=== PATIENT | female | born 2005 | race Caucasian/White ===

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

== ENCOUNTER 2024-02-24 19:35 | Outpatient (CLI) | payer MEDICAID, SELFPAY ==
[2024-02-24 19:49] VITALS: RESP 16; TEMP 36.8
[2024-02-24 19:50] VITALS: BP 104/64; PULSE 87
[2024-02-24 20:30] VITALS: BMI 24.5
[2024-02-24 20:59] LABS: Mucous, Urine 0 SEEN /hpf (<or=2+); Red Blood Cells-Urine 0 SEEN /hpf (0-5)
[2024-02-24 21:02] LABS: Absolute Lymphocyte Count 1.69 X10^3/uL (0.83-4.51); Absolute Neutrophil Count 8.7 X10^3/uL (2.0-7.7); Basophil# 0.02 X10^3/uL; Basophil% 0.2 % (0-1); Eosinophil# 0.05 X10^3/uL; Eosinophils% 0.4 % (0-5); Hematocrit 29.3 % (37-47); Hemoglobin 9.3 g/dL (12.0-15.0); Lymphocyte # 1.69 X10^3/ul (0.83-4.51); Mean Corp Hgb Conc 31.7 g/dL (32-36); Mean Corpuscular Hgb 24.6 pg (27.0-32.0); Mean Corpuscular Volume 77.5 fL (81-99); Mean Platelet Vol. 11.3 fl (6.2-12.0); Monocyte% 6.2 % (0-10); NRBC Flagged by Analyzer 0 % (0-5); Neutrophil # 8.74 X10^3/uL (2.7-7.7); Neutrophil % 77.3 % (47-70); Platelet Count 226 K/mm3 (150-450); RBC Distribution Width CV 13.5 % (11.6-14.6); RBC Distribution Width SD 38.1 fl (35.1-43.9); Red Blood Count 3.78 M/mm3 (4.2-5.4); White Blood Count 11.3 K/mm3 (4.4-11.0)
[2024-02-24 21:06] LABS: Color, Urine Yellow (Yellow); Glucose, Dipstick Normal (Normal); Ketone-Dipstick Negative (Negative); Leukocyte Esterase-Dipstick 25 /ul (Negative); Nitrite-Dipstick Negative (Negative); Occult Blood-Urine Negative /ul (Negative); Protein-Dipstick 15 mg/dl (Negative); Specific Gravity, Urine 1.015 (1.002-1.030); Urine Bilirubin Dipstick Negative (Negative); Urine Clarity Sl. Cloudy (Clear); Urine Urobilinogen Normal (Normal); Urine pH 6.5 (5.0 - 8.0)
[2024-02-24 21:12] LABS: Fibrinogen 468 mg/dl (203-444)
[2024-02-24 21:18] LABS: Bacteria 1+ /hpf (None Seen); Squamous Epithelial Cells - UA 5-10 SEEN /hpf (5-10); White Blood Cells 5-10 SEEN /hpf (0-5)
[2024-02-24 21:19] LABS: Amphetamine Urine VISTA NEGATIVE (<1000 ng/mL); Barbiturate Urine VISTA NEGATIVE (< 200 ng/mL); Benzodiazepine Urine VISTA NEGATIVE (< 200 ng/mL); Cocaine Urine VISTA NEGATIVE (< 300 ng/mL); Ecstacy Urine VISTA NEGATIVE (< 500 ng/mL); Methadone Urine VISTA NEGATIVE (< 300 ng/mL); PCP Urine VISTA NEGATIVE (< 25 ng/mL); THC Urine VISTA NEGATIVE (< 50 ng/mL); Vista UDS pH Range 6
--- NOTE | 2024-02-24 21:25 | CT_ITS ---
STUDY: CT ABDOMEN AND PELVIS WITH CONTRAST REASON FOR EXAM: Female, 18 years old. Abdominal pain RADIATION DOSAGE (If Supplied By Facility): CTDIvol = ( 11.80 ) mGy, DLP = ( 759.19 ) mGycm TECHNIQUE: Transaxial images were obtained from the dome of the diaphragm to the symphysis pubis without oral contrast. IV 100mL Isovue-370 was administered. Sagittal and coronal images were reconstructed. Individualized dose optimization techniques were used for this CT. COMPARISON: None. FINDINGS: The visualized lung bases are unremarkable. The visualized portions of the heart are within normal limits. Normal liver. The gallbladder is contracted. Normal spleen. Normal pancreas. Normal bilateral adrenal glands. Normal right kidney. Normal left kidney. Normal visualized stomach. Normal small intestine. Normal colon. There is non-visualization of the appendix. Normal abdominal aorta. Normal inferior vena cava. Normal retroperitoneum. Normal urinary bladder. Enlarged gravid uterus with a fetus in a breech lie. Normal abdominal wall. Normal osseous structures. CT/Abdomen/Pelvis WITH Contrast IMPRESSION: Normal enhanced CT of the abdomen and pelvis with a gravid uterus.. Electronically Signed: Naeem Cyr MD at 23:50 EDT ,
--- NOTE | 2024-02-24 21:28 | US_ITS ---
STUDY: SECOND AND THIRD TRIMESTER OBSTETRICAL ULTRASOUND REASON FOR EXAM: Female, 18 years old no care-ANATOMY SCAN LMP: 07/16/2023 TECHNIQUE: Transabdominal TECHNICAL QUALITY: Adequate. PRIOR ULTRASOUND: None. FINDINGS: There is a single intrauterine fetus. The fetus is in a breech presentation. There is demonstrated cardiac activity with a heart rate of 136 bpm. There is a normal amniotic fluid volume. The largest amniotic fluid pocket measures 4.7 cm. The amniotic fluid index (TATA) is 15.1 cm. The placenta is posterior in location and is not low lying. There are Grade 1 placental changes. The cervix measures 4.6 cm in length. The bilateral adnexal regions are normal. BIOMETRY: BPD: 7.8 cm: 31 weeks, 1 days HC: 30.3 cm: 33 weeks, 4 days AC: 27.4 cm: 31 weeks, 3 days FL: 5.6 cm: 29 weeks, 3 days CI: 76.72 FL/BPD: 72.30 FL/HC: 18.52 FL/AC: 20.48 HC/AC: 1.11 age by current US: 31 weeks, 0 days. ROLANDA by current US: 04/27/2024. Estimated weight: 1654 grams, +/- 248 grams, 14 %. age by prior US: weeks, days. ROLANDA by prior US: . Age by LMP: 31 weeks, 6 days. ROLANDA by LMP: 04/21/2024. ANATOMY: Gender: Male Cranium: The lateral ventricles are non-visualized. Normal choroid plexus. Normal cerebellum. Normal cisterna magna. Normal face, nose and lips. Chest: Normal 4-chamber heart. Abdomen/Pelvis: Normal diaphragm. Normal stomach. Normal abdominal wall. Normal cord insertion. Normal 3 vessel cord. Normal kidneys. Normal bladder. Spine: Normal cervical spine. Normal thoracic spine. Normal lumbar spine. Normal sacrum. Extremities: Normal bilateral upper extremities. Normal bilateral lower extremities. US/OB Anatomy w/ Transvaginal IMPRESSION: Living intrauterine of 31 weeks 0 days as described above. Electronically Signed: Naeem Cyr MD at 0:21 EDT ,
--- NOTE | 2024-02-24 21:40 | OB.TRI.HP_ITS ---
HPI - General HPI Narrative SWATI COFFEY, is a 18 F who presents for new onset lower abdominal pain radiating kellie the back, worse on the right starting this evening. no n v or diarrhea. no fevers. no dysuria no history of kidney stones. she has only had one visit. Maternal Data Information ROLANDA Calculator Estimated Delivery Date Method Current WG Current Estimate 04/21/24 Ultrasound #1 31w 6d Other Estimates 05/09/24 LMP (Certain) 29w 2d PFSH PFSH Medical History Fracture of left lower leg Home Medications NK 10/27/23 [History Last Taken Unknown] Allergy/AdvReac Type Severity Reaction Status Date / Time No Known Allergies Allergy Verified 02/24/24 20:54 Surgical History History of surgery on lower extremity Social History Smoking Status: Current every day smoker tobacco type: cigarettes alcohol intake: never substance use type: does not use caffeine: Yes what type of physical activity do you participate in: none seatbelt use: always do you feel safe at home: Yes additional social history: Boyfriend: Kentrell History 1 Elective abortions Hx Para Spontaneous abortions Hx # Term Pregnancies Ectopic pregnancies Hx # Pregnancies Multiple births # of living children Visit Details Expected Delivery Route/Plan Labor Preferences- CB/BF classes: [] labor support person: [] labor intervention preferences: [] pain management options preferred: [] cut cord/dad catch: [] : [] PP control planned: [] discussed possible routes of delivery and associated risks: [] special requests: [] Plans Covid status: [] Flu vaccine: [] Tdap vaccine: [] Rhogam: [] LARC form signed: [] Problem list reviewed and updated with the most current plan of care details and appropriate orders placed. Relevant counseling for the gestational age provided. Continue routine care and follow up unless otherwise noted in visit notes/problem list details OB Flowsheet Initial Weight: Not Recorded Date -?-?-?-?-?-?-?-?-?-?-?-?- EGA Weight BP Urine Prot -?-?-?-?-?-?-?-?-?-?-?-?- Glucose FHR FuHt Pres Dilation -?-?-?-?--?-?-?-?-?-?-?-?- Effaced St Visit Note 10/14/23 -?-?-?-?-?-?-?-?-?-?-?-?- 12w 6d 134 lb 2 oz 137/74 -?-?-?-?-?-?-?-?-?-?-?-?- 174 -?-?-?-?-?-?-?-?-?-?-?-?- JV- CRL not cons istent with LMP. [place] of 04/21/24, desires NIPT. ROS Constitutional Constitutional: Reports systems reviewed and no addt'l complaints, except as documented and as per HPI ENT HEENT: Reports systems reviewed and no addt'l complaints, except as documented Cardiovascular Cardiovascular: Reports systems reviewed and no addt'l complaints, except as documented Respiratory/Chest Respiratory/Chest: Reports systems reviewed and no addt'l complaints, except as documented Gastrointestinal Gastrointestinal: Reports as per HPI Genitourinary Genitourinary: Reports as per HPI Musculoskeletal Musculoskeletal: Reports systems reviewed and no addt'l complaints, except as documented Integumentary Integumentary: Reports systems reviewed and no addt'l complaints, except as documented Neurologic Neurologic: Reports systems reviewed and no addt'l complaints, except as documented Physical Exam Const alert, oriented x3 and no apparent distress HEENT Head and Scalp: normocephalic and atraumatic Neck full ROM and no lymphadenopathy Chest inspection of chest normal Resp normal respiratory effort GI GI Narrative: gravid, abdomen nontender, AGA Manual OB Exam: dilated, effaced and station NST FHR Rate Baby A Baseline: 140 Variability:: Moderate Accelerations:: 15 x 15 Decelerations:: None NST Reactive:: Yes FHR Category:: Category I Uterine Activity:: irritability Assessment & Plan (1) Supervision of high risk in first trimester: COMMENT: PRR , boy, Boyfriend: Kentrell (2) : COMMENT: NIPT low risk, silent carrier for Alpha-Thalassemia recommend screening of Kentrell (3) Abdominal pain during in third trimester: PLAN: Plan plan lab and imaging evaluation, anatomy ultrasound ordered. cervix closed but uterine irritability present Charges/Coding Multi Select Codes Visit Charges Office Visit/Consults: 13282 OV L3 Est 20min Urinary/Genital Urinary/Genital CPT Codes: 19963-99 non-stress test Interp
[2024-02-24 22:16] LABS: Anion Gap 6 (5-15); BUN 9 mg/dL (7-18); BUN/Creat Ratio 14.1 RATIO (10-20); Chloride 108 mmol/L (98-107); Creatinine, Serum 0.64 mg/dL (0.55-1.02); EST Glomerular Filtration Rate 126 mL/min (>60); Est Glom Filt Rate - Afr Amer 153 mL/min (>60); Estimated Creatinine Clearance 132.36 ml/min; Glucose 88 mg/dL (74-106); Potassium 3.7 mmol/L (3.5-5.1); Sodium Level 139 mmol/L (136-145)
[2024-02-24 23:08] VITALS: BP 112/66; PULSE 80; O2SAT 100
[2024-02-25] VITALS (43 sets, daily range): BP systolic 106–113; BP diastolic 56–63; PULSE 65–115; RESP 15–16; TEMP 36.3–36.6; O2SAT 97–99
[2024-02-25 06:37] LABS: ALB/GLOB Ratio 0.7 RATIO (0.9-2.4); AST(SGOT) 23 U/L (15-37); Alanine Aminotransfer ALT/SGPT 37 U/L (13-56); Albumin, Serum 2.6 g/dL (3.2-5.0); Alkaline Phosphatase 130 U/L (45-117); Anion Gap 5 (5-15); BUN 12 mg/dL (7-18); BUN/Creat Ratio 22.9 RATIO (10-20); Calcium,Total 7.9 mg/dL (8.5-10.1); Chloride 109 mmol/L (98-107); Creatinine, Serum 0.52 mg/dL (0.55-1.02); EST Glomerular Filtration Rate 159 mL/min (>60); Est Glom Filt Rate - Afr Amer 192 mL/min (>60); Globulin 3.6 g/dL (2.2-4.2); Glucose 86 mg/dL (74-106); Potassium 3.6 mmol/L (3.5-5.1); Protein, Total 6.2 g/dL (6.4-8.2); Sodium Level 138 mmol/L (136-145)
[2024-02-25 07:09] LABS: Hematocrit 26.8 % (37-47); Hemoglobin 8.6 g/dL (12.0-15.0); Mean Corp Hgb Conc 32.1 g/dL (32-36); Mean Corpuscular Hgb 24.8 pg (27.0-32.0); Mean Corpuscular Volume 77.2 fL (81-99); RBC Distribution Width CV 13.4 % (11.6-14.6); Red Blood Count 3.47 M/mm3 (4.2-5.4)
[2024-02-25 07:10] LABS: Basophil% 0.2 % (0-1); Eosinophils% 1.2 % (0-5); Lymphocyte # 2.14 X10^3/ul (0.83-4.51); Lymphocyte % 21.5 % (19-41); Mean Platelet Vol. 10.9 fl (6.2-12.0); Monocyte% 8.5 % (0-10); Neutrophil # 6.71 X10^3/uL (2.7-7.7); Neutrophil % 67.4 % (47-70); Platelet Count 184 K/mm3 (150-450); RBC Distribution Width SD 37.9 fl (35.1-43.9)
[2024-02-25 07:11] LABS: Basophil# 0.02 X10^3/uL; Eosinophil# 0.12 X10^3/uL; Monocyte# 0.85 X10^3/uL
--- NOTE | 2024-02-25 08:29 | OB.TRI.NOTE ---
HPI - General HPI Narrative SWATI COFFEY, is a 18 F who presents for abdominal pain- improving no vb lof admits good fm no reuglar ctx Maternal Data Information ROLANDA Calculator Estimated Delivery Date Method Current WG Current Estimate 04/21/24 Ultrasound #1 32w 0d Other Estimates 05/09/24 LMP (Certain) 29w 3d PFSH PFSH Medical History Fracture of left lower leg Home Medications ferrous sulfate 325 mg (65 mg iron) tablet (Feosol) 325 mg PO BID #60 tabs 02/25/24 [Rx Last Taken Unknown] vitamin #56-iron 35 mg and 5 mg-folic acid 1 mg-dha capsule 1 cap PO QHS #30 caps 02/25/24 [Rx Last Taken Unknown] Allergy/AdvReac Type Severity Reaction Status Date / Time No Known Allergies Allergy Verified 02/24/24 20:54 Surgical History History of surgery on lower extremity Social History Smoking Status: Current every day smoker tobacco type: cigarettes alcohol intake: never substance use type: does not use caffeine: Yes what type of physical activity do you participate in: none seatbelt use: always do you feel safe at home: Yes additional social history: Boyfriend: Kentrell History 1 Elective abortions Hx Para Spontaneous abortions Hx # Term Pregnancies Ectopic pregnancies Hx # Pregnancies Multiple births # of living children Visit Details Expected Delivery Route/Plan Labor Preferences- CB/BF classes: [] labor support person: [] labor intervention preferences: [] pain management options preferred: [] cut cord/dad catch: [] : [] PP control planned: [] discussed possible routes of delivery and associated risks: [] special requests: [] Plans Covid status: [] Flu vaccine: [] Tdap vaccine: [] Rhogam: [] LARC form signed: [] Problem list reviewed and updated with the most current plan of care details and appropriate orders placed. Relevant counseling for the gestational age provided. Continue routine care and follow up unless otherwise noted in visit notes/problem list details OB Flowsheet Initial Weight: Not Recorded Date <del>?</del> EGA Weight BP Urine Prot <del>?</del> Glucose FHR FuHt Pres Dilation <del>?</del> Effaced St Visit Note 10/14/23 <del>?</del> 12w 6d 134 lb 2 oz 137/74 <del>?</del> 174 <del>?</del> JV- CRL not consistent with LMP. [place] of 04/21/24, desires NIPT. ROS Constitutional Constitutional: Reports systems reviewed and no addt'l complaints, except as documented and as per HPI ENT HEENT: Reports systems reviewed and no addt'l complaints, except as documented Cardiovascular Cardiovascular: Reports systems reviewed and no addt'l complaints, except as documented Respiratory/Chest Respiratory/Chest: Reports systems reviewed and no addt'l complaints, except as documented Gastrointestinal Gastrointestinal: Reports as per HPI Genitourinary Genitourinary: Reports as per HPI Musculoskeletal Musculoskeletal: Reports systems reviewed and no addt'l complaints, except as documented Integumentary Integumentary: Reports systems reviewed and no addt'l complaints, except as documented Neurologic Neurologic: Reports systems reviewed and no addt'l complaints, except as documented Physical Exam Const alert, oriented x3 and no apparent distress HEENT Head and Scalp: normocephalic and atraumatic Neck full ROM and no lymphadenopathy Chest inspection of chest normal Resp normal respiratory effort GI GI Narrative: gravid, abdomen nontender, AGA Manual OB Exam: dilated, effaced and station Assessment & Plan (1) Abdominal pain during in third trimester: PLAN: Plan fu in office, reivewed precautions
--- NOTE | 2024-02-25 09:34 | CASEMGMT ---
Labor and Delivery Social Work Date of referral: 02/25/24 Time of referral: 0017 Date of intervention: 02/25/24 Time of intervention: 0900 Reason for social work consult: resources, one care visit Intervention: Sw completed chart review and acknowledges social work consult entered due to need of resources. Sw presented to bedside and introduced self to mother of baby (MEG- Kierra) and explained sw role. MEG states that she and father of baby (FOB- Kentrell Vargas) have known each other since they were 13 years old, but started dating each other about a year ago. MEG reports that at this time she and FOB currently reside with Kentrell's mom and step dad. Neither parent has their drivers license at this time ([place] has his permit, and MEG does not have an ID) and rely on Kentrell's mom and step dad for transportation to necessary appointments. MEG states that she only had one appointment (October 2023) because she was on her mom's insurance, but her mom took her off of it so at this time she does not have any medical coverage. MEG states that she luz maria to [facility] to get insurance, but needed to get an ID, and in order to get an ID she had to show proof of residency. MEG states that she now is working on taking a piece of mail to the [employer] to get her ID and will then go to [facility] to apply for Medicaid. Sw asked MEG if she has mail she is able to take in order to prove she resides in [facility]. MOB stated that she does. Sw asked MEG if she has future appointments scheduled, and emphasized the importance of attending OBGYN appointments regularly. MEG stated that she has an OBGYN apt scheduled for 03/03 with [facility]. MEG stated that transportation has never been a barrier to her attending her appointments- it is all because she did not think that she has medical coverage. Sw asked MEG if she has contacted [facility] to confirm that her mom took her off of her coverage, MOB denied attempting to do so. Sw asked MEG if she has obtained all necessary baby supplies, such as: car seat, safe sleep space, clothes, diapers, wipes, etc. MOB stated that all of those items have been purchased, but they are in [place]. Sw asked why the baby supplies are in [place]. MOB stated that BEATA's mom inherited a house in [place], and the family is supposed to be moving there next month. Sw informed MOB that she really should consider purchasing doubles of the necessary baby supplies in case plans fall through and the family does not move until after the baby is born, or if the baby is born earlier than expected. MOB expressed understanding. Resources discussed: [facility] (sw provided address and phone number)- sw informed MOB that they may be ab el to help obtain needed baby supplies. [employer] [facility] [employer]- sw told MOB that she will need to get her own account eventually to add baby to insurance once he is born. Transportation services- list of local agencies provided that help patient's obtain transportation assistance for medical apts. [facility]- told MOB that it is important she continue to be seen during her . [facility] [employer]- provided to help MOB get connected to services and supports that she may need at this time that were not discussed. 0945: Sw called [employer] and confirmed that MEG is insured. Sw presented to bedside and informed MOB that at this time she is still covered by the [employer] insurance. MOB expressed understanding. Assessment: MEG is 18 y/o who is 31 weeks . MOB has had one appointment- and states that she did not go any more because she thought she did not have insurance. MEG is currently residing with [facility], neither parent is working or has their drivers license at this time. Family has intentions of moving to [place] at some point in March. Due to the unknown sw encouraged MOB to obtain baby supplies for [place] if plans were to fall through. MEG reports that she has access to food and transportation. MOB needs to obtain a valid ID and provide proof of residency- which she reports she is able to do at this time. MEG has [facility] apt scheduled for 03/03 and was informed on importance of attending routine OBGYN appointments during as well as adult care manager appointments once baby is born. Plan: Sw to follow up with MEG when she has delivered baby if born at [facility]. Dylan Mcclain, [employer], [employer]
--- NOTE | 2024-02-28 17:50 | OB.TRI.HP_ITS ---
HPI - General General Date of Service: 02/24/24 HPI Narrative SWATI COFFEY, is a 18 F who presents with abdominal pain at 31.6. pt has not Maternal Data Information ROLANDA Calculator 2 Estimated Delivery Date Method Current WG Current Estimate 04/21/24 Ultrasound #1 32w 3d Other Estimates 05/09/24 LMP (Certain) 29w 6d PFSH PFSH Medical History Fracture of left lower leg Home Medications ferrous sulfate 325 mg (65 mg iron) tablet (Feosol) 325 mg PO BID #60 tabs 02/25/24 [Rx Last Taken Unknown] vitamin #56-iron 35 mg and 5 mg-folic acid 1 mg-dha capsule 1 cap PO QHS #30 caps 02/25/24 [Rx Last Taken Unknown] Allergy/AdvReac Type Severity Reaction Status Date / Time No Known Allergies Allergy Verified 02/24/24 20:54 Surgical History History of surgery on lower extremity Social History Smoking Status: Current every day smoker tobacco type: cigarettes alcohol intake: never substance use type: does not use caffeine: Yes what type of physical activity do you participate in: none seatbelt use: always do you feel safe at home: Yes additional social history: Boyfriend: Kentrell History 1 Elective abortions Hx Para Spontaneous abortions Hx # Term Pregnancies Ectopic pregnancies Hx # Pregnancies Multiple births # of living children Visit Details Expected Delivery Route/Plan Labor Preferences- CB/BF classes: [] labor support person: [] labor intervention preferences: [] pain management options preferred: [] cut cord/dad catch: [] : [] PP control planned: [] discussed possible routes of delivery and associated risks: [] special requests: [] Plans Covid status: [] Flu vaccine: [] Tdap vaccine: [] Rhogam: [] LARC form signed: [] Problem list reviewed and updated with the most current plan of care details and appropriate orders placed. Relevant counseling for the gestational age provided. Continue routine care and follow up unless otherwise noted in visit notes/problem list details OB Flowsheet Initial Weight: Not Recorded Date -?-?-?-?-?-?-?-?-?-?-?-?- EGA Weight BP Urine Prot -?-?-?-?-?-?-?-?-?-?-?-?- Glucose FHR FuHt Pres Dilation -?-?-?-?-?-?-?-?-?-?-?-?- Effaced St Visit Note 10/14/23 -?-?-?-?-?-?-?-?-?-?-?-?- 12w 6d 134 lb 2 oz 137/74 -?-?-?-?-?-?-?-?-?-?-?-?- 174 -?-?-?-?-?-?-?-?-?-?-?-?- JV- CRL not cons istent with LMP. new [place] of 04/21/24, desires NIPT. NST FHR Rate Baby A Baseline: 120-130 Variability:: Moderate Accelerations:: 15 x 15 Decelerations:: None NST Reactive:: Yes FHR Category:: Category I Assessment & Plan (1) Abdominal pain during in third trimester: Charges/Coding Multi Select Codes Urinary/Genital Urinary/Genital CPT Codes: 08184-31 non-stress test Interp
== END 2024-02-25 10:15 | disposition home or self-care (01) ==
LOC: WPOUT 19:38 → WP 19:39
PROVIDERS: Obstetrics & Gynecology; Referring Provider Registered Nurse; Visit Provider Registered Nurse
DX: O99.891 Other specified diseases and conditions complicating pregnancy (principal); R10.31 Right lower quadrant pain; O99.333 Smoking (tobacco) complicating pregnancy, third trimester; Z3A.00 Weeks of gestation of pregnancy not specified
CPT/HCPCS: 36415; 59025; 59050; 74177; 76805; 76817; 80048; 80053; 80307; 81001; 85025; 85384; 86850; 86900; 86901; 87086; 87088; 99221; Q9967; G0378

== ENCOUNTER 2024-02-29 13:05 | Outpatient (CLI) | payer MEDICAID, SELFPAY ==
[2024-02-29 13:22] VITALS: RESP 16; TEMP 36.9
[2024-02-29 13:23] VITALS: BP 111/64; PULSE 82
[2024-02-29 13:24] VITALS: BMI 24.3
[2024-02-29] MEDS: Lactated Ringers 1,000 ML 999 ML IV (13:45)
[2024-02-29 13:52] LABS: Bacteria 0 SEEN /hpf (None Seen); Mucous, Urine 0 SEEN /hpf (<or=2+); Red Blood Cells-Urine 0 SEEN /hpf (0-5)
[2024-02-29 13:56] LABS: Absolute Lymphocyte Count 1.23 X10^3/uL (0.83-4.51); Basophil# 0.03 X10^3/uL; Basophil% 0.2 % (0-1); Hematocrit 30.4 % (37-47); Hemoglobin 9.9 g/dL (12.0-15.0); Lymphocyte # 1.23 X10^3/ul (0.83-4.51); Lymphocyte % 7.2 % (19-41); Mean Corp Hgb Conc 32.6 g/dL (32-36); Mean Corpuscular Hgb 24.9 pg (27.0-32.0); Mean Corpuscular Volume 76.6 fL (81-99); Mean Platelet Vol. 11.4 fl (6.2-12.0); Monocyte# 0.65 X10^3/uL; Monocyte% 3.8 % (0-10); NRBC Flagged by Analyzer 0 % (0-5); Neutrophil # 15.03 X10^3/uL (2.7-7.7); Neutrophil % 87.7 % (47-70); Platelet Count 239 K/mm3 (150-450); RBC Distribution Width CV 13.5 % (11.6-14.6); RBC Distribution Width SD 37.3 fl (35.1-43.9); Red Blood Count 3.97 M/mm3 (4.2-5.4); White Blood Count 17.1 K/mm3 (4.4-11.0)
[2024-02-29 14:06] LABS: Color, Urine Yellow (Yellow); Glucose, Dipstick Normal (Normal); Ketone-Dipstick Negative (Negative); Leukocyte Esterase-Dipstick 25 /ul (Negative); Nitrite-Dipstick Negative (Negative); Occult Blood-Urine Negative /ul (Negative); Protein-Dipstick 30 mg/dl (Negative); Urine Bilirubin Dipstick Negative (Negative); Urine Clarity Cloudy (Clear); Urine Urobilinogen Normal (Normal)
[2024-02-29] MEDS: Morphine 2 MG/ML Syringe IV (14:07)
[2024-02-29] MEDS: Ondansetron 4 MG/2 ML Vial IV (14:07)
[2024-02-29 14:10] LABS: ALB/GLOB Ratio 0.7 RATIO (0.9-2.4); AST(SGOT) 27 U/L (15-37); Alanine Aminotransfer ALT/SGPT 43 U/L (13-56); Alkaline Phosphatase 169 U/L (45-117); Anion Gap 6 (5-15); BUN 7 mg/dL (7-18); BUN/Creat Ratio 14.4 RATIO (10-20); Calcium,Total 8.7 mg/dL (8.5-10.1); Chloride 107 mmol/L (98-107); Creatinine, Serum 0.48 mg/dL (0.55-1.02); EST Glomerular Filtration Rate 174 mL/min (>60); Est Glom Filt Rate - Afr Amer 210 mL/min (>60); Estimated Creatinine Clearance 176.48 ml/min; Globulin 4.1 g/dL (2.2-4.2); Glucose 98 mg/dL (74-106); Potassium 3.6 mmol/L (3.5-5.1); Protein, Total 7.1 g/dL (6.4-8.2); Sodium Level 137 mmol/L (136-145)
[2024-02-29 14:13] LABS: Amorphous Sediment 2+; Squamous Epithelial Cells - UA 0-5 SEEN /hpf (5-10); White Blood Cells 0-5 SEEN /hpf (0-5)
[2024-02-29 14:14] VITALS: BP 109/66; PULSE 74; RESP 16; TEMP 37; O2SAT 100
[2024-02-29] MEDS: Famotidine 200 MG/20 ML MDV 20 MG in 0.9% Normal Saline (Pres. free 8 ML 300 MG IV (14:57)
--- NOTE | 2024-02-29 15:54 | OB.TRI.HP_ITS ---
HPI - General General Date of Service: 02/29/24 Chief Complaint: abdominal pain HPI Narrative SWATI COFFEY, is a 18 F who presents at 32.4 with consistent abdominal pain, has been vomiting off and on over the past few days. no sick contacts. +FM, denies feeling contractions, no vb/lof. Maternal Data Information ROLANDA Calculator Estimated Delivery Date Method Current WG Current Estimate 04/21/24 Ultrasound #1 32w 4d Other Estimates 05/09/24 LMP (Certain) 30w 0d PFSH PFSH Medical History Fracture of left lower leg Home Medications ferrous sulfate 325 mg (65 mg iron) tablet (Feosol) 325 mg PO BID #60 tabs 02/25/24 [Rx Last Taken 02/28/24] vitamin #56-iron 35 mg and 5 mg-folic acid 1 mg-dha capsule 1 cap PO QHS #30 caps 02/25/24 [Rx Last Taken 02/28/24] Allergy/AdvReac Type Severity Reaction Status Date / Time No Known Allergies Allergy Verified 02/24/24 20:54 Surgical History History of surgery on lower extremity Social History Smoking Status: Current every day smoker tobacco type: cigarettes alcohol intake: never substance use type: does not use caffeine: Yes what type of physical activity do you participate in: none seatbelt use: always do you feel safe at home: Yes additional social history: Boyfriend: Kentrell History 1 Elective abortions Hx Para Spontaneous abortions Hx # Term Pregnancies Ectopic pregnancies Hx # Pregnancies Multiple births # of living children Visit Details Expected Delivery Route/Plan Labor Preferences- CB/BF classes: [] labor support person: [] labor intervention preferences: [] pain management options preferred: [] cut cord/dad catch: [] : [] PP control planned: [] discussed possible routes of delivery and associated risks: [] special requests: [] Plans Covid status: [] Flu vaccine: [] Tdap vaccine: [] Rhogam: [] LARC form signed: [] Problem list reviewed and updated with the most current plan of care details and appropriate orders placed. Relevant counseling for the gestational age provided. Continue routine care and follow up unless otherwise noted in visit notes/problem list details OB Flowsheet Initial Weight: Not Recorded Date -?-?-?-?-?-?-?-?-?-?-?-?- EGA Weight BP Urine Prot -?-?-?-?-?-?-?-?-?-?-?-?- Glucose FHR FuHt Pres Dilation -?-?-?-?-?-?-?-?-?-?-?-?- Effaced St Visit Note 10/14/23 -?-?-?-?-?-?-?-?-?-?-?-?- 12w 6d 134 lb 2 oz 137/74 -?-?-?-?-?-?-?-?-?-?-?-?- 174 -?-?-?-?-?-?-?-?-?-?-?-?- JV- CRL not cons istent with LMP. new [place] of 04/21/24, desires NIPT. Physical Exam Const alert, oriented x3 and no apparent distress Resp normal respiratory effort, normal air movement, no retractions and no use of accessory muscles Cardio regular rate and regular rhythm GI soft to palpation and non-tender Inspection: Palpation: soft Rectal Exam: deferred no CVA tenderness and external exam normal Bimanual Exam - Vag & Uterus: uterus non-tender and other gravid uterus, normal for gestational age OB / External & Speculum: Negative for herpetic lesions Manual OB Exam: estimated gestational size appropriate and presentation cephalic Amniotic Fluid: no amniotic fluid noted Extremity normal to inspection and full ROM Neuro Motor Exam: strength 5/5 throughout and muscle tone normal throughout Deep Tendon Reflexes: Rt Patellar (L4): 2+ and Lt Patellar (L4): 2+ NST FHR Rate Baby A Baseline: 130 Variability:: Moderate Accelerations:: 15 x 15 Decelerations:: None NST Reactive:: Yes FHR Category:: Category I Uterine Activity:: irregular Assessment & Plan (1) Abdominal pain during in third trimester: COMMENT: reassuring labs. sp zofran, IVF and pepcid with decreasing symptoms. PLAN: Plan Patient presents for triage evaluation secondary to abdominal pain, likely gastroenteritis FHT: Moderate variability reactive no decelerations category I tracing [place]: irregular Contractions Assessment and plan: Reactive NST, reassuring maternal and status patient discharged to home to follow-up on saturday in the office. See problem list details for additional plan information. Charges/Coding Visit Charges Office Visits / Consults: 67135 OP Consult L3 Procedures Urinary/Genital 52xxx-59xxx: 91078-04 non-stress test Interp Multi Select Codes Urinary/Genital Urinary/Genital CPT Codes: 90214-10 non-stress test Interp
== END 2024-02-29 16:00 | disposition home or self-care (01) ==
LOC: WPOUT 13:16 → WP 13:16
PROVIDERS: Visit Provider Registered Nurse
DX: O99.891 Other specified diseases and conditions complicating pregnancy (principal); R10.9 Unspecified abdominal pain; Z3A.32 32 weeks gestation of pregnancy; O99.333 Smoking (tobacco) complicating pregnancy, third trimester; F17.210 Nicotine dependence, cigarettes, uncomplicated
CPT/HCPCS: 96365; 96375; 96361; 36415; 59025; 59050; 80053; 81001; 85025; 99221; J7120; G0378; J2405; J3490

== ENCOUNTER → 2024-03-03 | Outpatient (CLI) | payer MEDICAID, SELFPAY ==
[2024-03-03 15:10] LABS: Absolute Lymphocyte Count 1.59 X10^3/uL (0.83-4.51); Absolute Neutrophil Count 8.8 X10^3/uL (2.0-7.7); Basophil# 0.02 X10^3/uL; Basophil% 0.2 % (0-1); Eosinophils% 0.9 % (0-5); Hemoglobin 9.8 g/dL (12.0-15.0); Lymphocyte # 1.59 X10^3/ul (0.83-4.51); Mean Corp Hgb Conc 31.6 g/dL (32-36); Mean Corpuscular Hgb 24.6 pg (27.0-32.0); Mean Corpuscular Volume 77.7 fL (81-99); Monocyte% 6.2 % (0-10); NRBC Flagged by Analyzer 0 % (0-5); Neutrophil # 8.78 X10^3/uL (2.7-7.7); Neutrophil % 77.5 % (47-70); Platelet Count 235 K/mm3 (150-450); RBC Distribution Width CV 14.6 % (11.6-14.6); RBC Distribution Width SD 38.9 fl (35.1-43.9); Red Blood Count 3.99 M/mm3 (4.2-5.4); White Blood Count 11.3 K/mm3 (4.4-11.0)
[2024-03-03 15:23] LABS: Glucose Challenge Gest 1H 50g 100 mg/dL (70-140)
[2024-03-03 15:56] LABS: HIV - WCH Non-Reactive (Nonreactive); Syphilis Antibodies Non-reactive
== END | disposition home or self-care (01) ==
PROVIDERS: Referring Provider Advanced Practice Midwife; Visit Provider Advanced Practice Midwife
DX: O09.91 Supervision of high risk pregnancy, unspecified, first trimester (principal); Z13.1 Encounter for screening for diabetes mellitus; Z3A.00 Weeks of gestation of pregnancy not specified
CPT/HCPCS: 36415; 82950; 85025; 86703; 86780

== ENCOUNTER → 2024-03-27 | Outpatient (CLI) | payer MEDICAID, SELFPAY | END | disposition home or self-care (01) | LOC: LABSPEC 16:56 | PROVIDERS: Referring Provider Advanced Practice Midwife; Visit Provider Advanced Practice Midwife | DX: O09.91 Supervision of high risk pregnancy, unspecified, first trimester (principal); Z3A.00 Weeks of gestation of pregnancy not specified | CPT/HCPCS: 87081 ==

== ENCOUNTER 2024-04-08 14:35 | Outpatient (CLI) | payer MEDICAID, SELFPAY ==
[2024-04-08 15:10] VITALS: BMI 25.6
[2024-04-08 15:25] VITALS: TEMP 36.4
[2024-04-08 15:26] VITALS: BP 100/56; PULSE 83; TEMP 36.4
[2024-04-08 15:47] LABS: ROM Internal Control Test YES-OK TO RESULT pt. (Internal QC); ROM Patient Test Negative (Negative); Record Kit Lot#, ROM+ K1866
[2024-04-08 16:38] LABS: Mucous, Urine 0 SEEN /hpf (<or=2+); Red Blood Cells-Urine 0 SEEN /hpf (0-5)
[2024-04-08 17:21] LABS: Color, Urine Yellow (Yellow); Glucose, Dipstick Normal (Normal); Ketone-Dipstick Negative (Negative); Leukocyte Esterase-Dipstick 25 /ul (Negative); Nitrite-Dipstick Negative (Negative); Occult Blood-Urine Negative /ul (Negative); Protein-Dipstick 15 mg/dl (Negative); Specific Gravity, Urine 1.015 (1.002-1.030); Urine Bilirubin Dipstick Negative (Negative); Urine Clarity Clear (Clear); Urine Urobilinogen 1 mg/dl (Normal)
[2024-04-08 17:47] LABS: Bacteria 1+ /hpf (None Seen); Renal Epithelial Cells 0-5 SEEN /hpf (0-5); Squamous Epithelial Cells - UA 0-5 SEEN /hpf (5-10); White Blood Cells 0-5 SEEN /hpf (0-5)
--- NOTE | 2024-04-14 03:47 | OB.TRI.PN ---
Progress Notes Date of Service: 04/08/24 Progress Note: Patient presents for triage evaluation secondary to contractions FHT: 140 Moderate variability reactive no decelerations category I tracing [place]: irregular Contractions Assessment and plan: false labor Reactive NST, reassuring maternal and status patient discharged to home to follow-up as scheduled. See problem list details for additional plan information. Laboratory Studies: Laboratory Tests 04/08/24 04/08/24 Range/Units 16:15 15:14 Urine Color Yellow (Yellow) Urine Clarity Clear (Clear) Urine pH 6.0 (5.0 - 8.0) Ur Specific [place] 1.015 (1.002-1.030) Urine Protein 15 H (Negative) mg/dl Urine Glucose (UA) Normal (Normal) mg/dl Urine Ketones Negative (Negative) mg/dl Urine Occult Blood Negative (Negative) /ul Urine Nitrite Negative (Negative) Urine Bilirubin Negative (Negative) mg/dL Urine Urobilinogen 1 H (Normal) mg/dl Ur Leukocyte Esterase 25 H (Negative) /ul Urine RBC 0 SEEN (0-5) /hpf Urine WBC 0-5 SEEN (0-5) /hpf Ur Squamous Epith Cells 0-5 SEEN (5-10) /hpf Ur Renal Epithelial Cell 0-5 SEEN (0-5) /hpf Urine Bacteria 1+ (None Seen) /hpf Urine Mucus 0 SEEN (<or=2+) /hpf Vag Amniotic Fld Detect Negative (Negative) Charges/Coding Procedures Urinary/Genital 52xxx-59xxx: 35204-57 non-stress test Interp
== END 2024-04-08 16:30 | disposition home or self-care (01) ==
LOC: WPOUT 14:46 → WP 14:46
PROVIDERS: Referring Provider Obstetrics & Gynecology; Visit Provider Obstetrics & Gynecology
DX: O47.1 False labor at or after 37 completed weeks of gestation (principal); Z3A.38 38 weeks gestation of pregnancy
CPT/HCPCS: 59025; 59050; 81001; 84112; 87086; 87088; 99221; G0378

== ENCOUNTER → 2024-04-17 | Outpatient (CLI) | payer MEDICAID, SELFPAY ==
--- NOTE | 2024-04-17 16:37 | US_ITS ---
STUDY: SECOND AND THIRD TRIMESTER OBSTETRICAL ULTRASOUND - LIMITED REASON FOR EXAM: Female, 18 years old Uterine size-date discrepancy LMP: PRIOR ULTRASOUND: February 24, 2024 TECHNIQUE: Transabdominal TECHNICAL QUALITY: Adequate. FINDINGS: There is a single intrauterine fetus. The fetus is in a cephalic presentation. There is demonstrated cardiac activity with a heart rate of 144 bpm. There is a normal amniotic fluid volume. The largest amniotic fluid pocket measures 4.1 cm. The amniotic fluid index (TATA) is 12.06 cm. The placenta is posterior and not low-lying There are Grade 3 placental changes.. BIOMETRY: BPD: 9.07 cm: 36 weeks, 6 days HC: 33.85 cm: 38 weeks, 6 days AC: 34.97 cm: 38 weeks, 6 days FL: 17.18 cm: 36 weeks, 6 days Age by LMP: 39 weeks, 3 days. ROLANDA by LMP: April 21, 2024. age by prior ultrasound 31 weeks 0 days gestational age. ROLANDA April 27, 2024 age by current US: 38 weeks, 0 days. ROLANDA by current US: May 01, 2024. Estimated weight: 3402 grams, +/- 510 grams, 40 percentile. US/OB Limited With Biometrics IMPRESSION: Viable intrauterine gestation approximately 38 weeks gestational age which is within 10 days of maternal dating and one week relative to prior ultrasound Electronically Signed: Lux Alfred MD at 20:44 EDT ,
== END | disposition home or self-care (01) ==
LOC: US 16:35
PROVIDERS: Referring Provider Obstetrics & Gynecology; Visit Provider Obstetrics & Gynecology
DX: O26.843 Uterine size-date discrepancy, third trimester (principal); Z3A.00 Weeks of gestation of pregnancy not specified
CPT/HCPCS: 76816

== ENCOUNTER 2024-04-21 22:14 | Inpatient (IN) | payer MEDICAID, SELFPAY ==
[2024-04-21 20:50] VITALS: BMI 27.0
[2024-04-21 21:01] VITALS: BP 121/74; PULSE 96; RESP 18; TEMP 36.6; O2SAT 97; O2SAT 99
--- NOTE | 2024-04-21 22:29 | HP.PCM.OB_ITS ---
HPI - General HPI Narrative SWATI COFFEY, is a 18 y/o @ 40 weeks who presents to L&D with decreased movement. The NST showed moderate variability with accelerations however had a late deceleration during her NST. The decision was made to admit to L&D for IOL. The nurse checked her cervix and called it . Maternal Data Information ROLANDA Calculator Estimated Delivery Date Method Current WG Current Estimate 04/21/24 Ultrasound #1 40w 0d Other Estimates 05/09/24 LMP (Certain) 37w 3d PFSH PFSH Medical History Breech presentation Cellulitis, leg Fracture of left lower leg Home Medications ?Medication ?Instructions ?Recorded ?Last Taken ?Type ferrous sulfate 325 mg (65 mg 325 mg PO BID #60 tabs 02/25/24 04/20/24 Rx iron) tablet (Feosol) vitamin #56-iron 35 mg 1 cap PO QHS #30 caps 02/25/24 04/20/24 Rx and 5 mg-folic acid 1 mg-dha capsule Allergy/AdvReac Type Severity Reaction Status Date / Time No Known Allergies Allergy Verified 04/21/24 21:12 Surgical History History of surgery on lower extremity Social History Smoking Status: Current every day smoker tobacco type: cigarettes alcohol intake: never substance use type: does not use caffeine: Yes what type of physical activity do you participate in: none seatbelt use: always do you feel safe at home: Yes additional social history: Boyfriend: Kentrell History 1 Elective abortions Hx Para Spontaneous abortions Hx # Term Pregnancies Ectopic pregnancies Hx # Pregnancies Multiple births # of living children Visit Details Expected Delivery Route/Plan Labor Preferences- CB/BF classes: [] labor support person: [] labor intervention preferences: [] pain management options preferred: [] cut cord/dad catch: [] : [] PP control planned: [] discussed possible routes of delivery and associated risks: [] special requests: [] Plans Covid status: [] Flu vaccine: [] Tdap vaccine: declined Rhogam: na LARC form signed:declined movement and labor precautions reviewed. Problem list reviewed and updated with the most current plan of care details and appropriate orders placed. Relevant counseling for the gestational age provided. Continue routine care and follow up unless otherwise noted in visit notes/problem list details OB Flowsheet Initial Weight: Not Recorded Date -?-?-?-?--?-?-?-?-?-?-?-?- EGA Weight BP Urine Prot -?-?-?-?-?-?-?-?-?-?-?-?- Glucose FHR FuHt Pres Dilation -?-?-?-?-?-?-?-?-?-?-?-?- Effaced St Visit Note 10/14/23 -?-?-?-?-?-?-?-?-?-?-?-?- 12w 6d 134 lb 2 oz 137/74 -?-?-?-?-?-?-?-?-?-?-?-?- 174 -?-?-?-?-?-?-?-?-?-?-?-?- JV- CRL not cons istent with LMP. new [place] of 04/21/24, desires NIPT. 03/03/24 -?-?-?-?-?-?-?-?-?-?-?-?- 33w 0d 154 lb 106/73 Trace -?-?-?-?-?-?-?-?-?-?-?-?- Negative 135 32 -?-?-?-?-?-?-?-?-?-?-?-?- KW- no vb/lof/ct x. good fm. glucose today after appt. Anatomy scan completed while in triage-normal anatomy. -14 EFW%-breech discussed version. rx for PO iron given in triage. Discussed importance of keeping appts and PN care. Mom not engaged in visit although FOB very involved in visit and voiced understanding of returning for care 03/19/24 -?-?-?-?-?-?-?-?-?-?-?-?- 35w 2d 159 lb 120/79 -?-?-?-?-?-?-?-?-?-?-?-?- 140 35 -?-?-?-?-?-?-?-?-?-?-?-?- SM- no vb lof go od fm no regular ctx growth US ordered 03/27/24 -?-?-?-?-?-?-?-?-?-?-?-?- 36w 3d 161 lb 98/68 Negative -?-?-?-?-?-?-?-?-?-?-?-?- Negative 145 36 Cephalic 0 -?-?-?-?-?-?-?-?-?-?-?-?- KW- no vb/lof/ct x. good fm. GBS done 04/02/24 -?-?-?-?-?-?-?-?-?-?-?-?- 37w 2d 161 lb 107/73 Trace -?-?-?-?-?-?-?-?-?-?-?-?- Negative 140 37 Cephalic 0 .5 -?-?-?-?-?-?-?-?-?-?-?-?- SM- no vb lof go od fm no reuglar ctx 04/10/24 -?-?-?-?-?-?-?-?-?-?-?-?- 38w 3d 161 lb 2 oz 112/76 Trac e -?-?-?-?-?-?-?-?-?-?-?-?- Negative 135 38 Cephalic 1 -?-?-?-?-?-?-?-?-?-?-?-?- SM- no vb lof go od fm o regular ctx 04/16/24 -?-?-?-?-?-?-?-?-?-?-?-?- 39w 2d 164 lb 106/69 Negative -?-?-?-?-?-?-?-?-?-?-?-?- Negative 135 35 Cephalic -?-?-?-?-?-?-?-?-?-?-?-?- SM- no vb lof go od fm no regular ctx lost mucous plug SM- no vb lof good fm no reg ular ctx lost mucous plug. tata 10 cm, growth US ordered ROS Constitutional Constitutional: Denies change in weight, fatigue, fever(s), headache(s), poor appetite or weakness Eyes Eyes: Denies blurry vision, change in vision, seeing flashes or spots in vision ENT HEENT: Denies dizziness, headache(s), loss taste/smell or sore throat Cardiovascular Cardiovascular: Denies chest pain, dizziness, dyspnea, irregular heart rhythm, leg edema, palpitations, rapid heart rate or vomiting Respiratory/Chest Respiratory/Chest: Denies chest tightness, cough, dyspnea or breast pain Gastrointestinal Gastrointestinal: Denies abdominal pain, anorexia, constipation, cramping, wilber rrhea, hemorrhoids, vomiting or weight changes Genitourinary Genitourinary: Denies dysuria, flank pain, genital lesions, genital pain, urinary frequency or urinary urgency Musculoskeletal Musculoskeletal: Denies back pain, difficulty walking, joint pain, limited range of motion, muscle cramps or numbness Integumentary Integumentary: Denies lesions or unusual bruising Neurologic Neurologic: Denies abnormal movements, abnormal speech, dizziness, numbness, seizure-like activity or syncope Psychiatric Psychiatric: Denies anxiety, behavioral changes, change in appetite, change in libido, cognitive impairment, confusion, depression, difficulty concentrating, hallucinations or suicidal thoughts Endocrine Endocrinology: Denies excessive sweating, polydipsia or polyuria Hematologic/Lymphatic Hematologic/Lymphatic: Denies easy bleeding, easy bruising or lymphadenopathy Allergic/Immunologic Allergic/Immunologic: Denies itchy eyes, lip swelling, seasonal rhinorrhea, rhinitis, throat swelling, tongue swelling, eczemia, wheezing or asthma Vital Signs Vital Signs Vital Signs: 04/21/24 21:01 04/21/24 21:01 04/21/24 21:01 Temperature Temperature Source Pulse Rate 96 Respiratory Rate Blood Pressure 121/74 H BP Systolic 121 BP Diastolic 74 Pulse Ox 97 04/21/24 21:01 04/21/24 21:01 04/21/24 21:01 Temperature Temperature Source Temporal Pulse Rate Respiratory Rate 18 Blood Pressure BP Systolic BP Diastolic Pulse Ox 99 04/21/24 21:01 Temperature 97.8 F Temperature Source Pulse Rate Respiratory Rate Blood Pressure BP Systolic BP Diastolic Pulse Ox Weight Weight: 167 lb 5.294 oz Body Mass Index (BMI) 27.0 Physical Exam Const alert, oriented x3, no apparent distress and healthy appearing General Appearance: cooperative; Negative for anxious HEENT normocephalic Face and Sinus: normal facial exam Eyes EOMs intact bilaterally and no scleral icterus General Eye: normal appearance of both eyes Neck full ROM and supple Lymph Lymphatic: no lymphadenopathy noted Chest Chest: abnormal inspection of the chest Resp normal respiratory effort Effort and Inspection: able to speak in complete sentences Cardio regular rate GI soft to palpation and non-tender Inspection: gravid Palpation: soft; Negative for tender Back/Spine no CVA tenderness Extremity normal to inspection, full ROM and no clubbing, cyanosis or edema General Extremity: Negative for calf tenderness or edema Skin Lesions: no lesions Rashes: no rashes Psych mental status grossly normal Labs Labs Labs: Blood Type O POSITIVE Antibody Screen NEGATIVE Hct 31.0 % (37-47) L Hgb 9.8 g/dL (12.0-15.0) L Obstetrics Ultrasound Syphilis Total Ab Non-reactive Rubella IgG Antibody Reactive (Nonreactive) Hep Bs Antigen Non-Reactive (Nonreactive) Hepatitis C Antibody Non-Reactive (Nonreactive) Chlamydia DNA (ARIEL) Negative (Negative) N.gonorrhoeae DNA (ARIEL) Negative (Negative) HIV 1&2 Antibody Non-Reactive (Nonreactive) Glucose 1 Hr 50 gm 100 mg/dL (70-140) Assessment & Plan (1) Uterine size-date discrepancy, third trimester: COMMENT: tata 10 on 04/16. growth US ordered TATA 12 and growth at 40% (2) Anemia affecting : COMMENT: PO iron started (3) Abdominal pain during in third trimester: COMMENT: reassuring labs. sp zofran, IVF and pepcid with decreasing symptoms. (4) Current smoker: COMMENT: Discussed the importance of quitting especially while (5) Supervision of high risk in first trimester: COMMENT: PRR , [place] 04/21/24 boy, Boyfriend: Kentrell (6) : QUALIFIERS: Weeks of gestation: 39 weeks Qualified Code(s): Z3A.39 - 39 weeks gestation of COMMENT: GBS neg, Limited PNC, nl anatomy, NIPT low risk, silent carrier for Alpha-Thalassemia recommend screening of Kentrell PLAN: Plan Patient presents IOL, plan management for with cytotec tonight. Pain management: plans epidural. GBS negative. Management of any complications: none I have reviewed the [facility] and made any clinically relevant updates.
[2024-04-21] MEDS: Lactated Ringers 1,000 ML 50 ML IV (22:45)
[2024-04-21 22:55] LABS: Absolute Lymphocyte Count 2.15 X10^3/uL (0.83-4.51); Absolute Neutrophil Count 9.8 X10^3/uL (2.0-7.7); Basophil# 0.02 X10^3/uL; Basophil% 0.2 % (0-1); Eosinophil# 0.09 X10^3/uL; Eosinophils% 0.7 % (0-5); Hematocrit 32.7 % (37-47); Hemoglobin 10.5 g/dL (12.0-15.0); Lymphocyte # 2.15 X10^3/ul (0.83-4.51); Lymphocyte % 16.5 % (19-41); Mean Corp Hgb Conc 32.1 g/dL (32-36); Mean Corpuscular Hgb 24.9 pg (27.0-32.0); Mean Corpuscular Volume 77.5 fL (81-99); Mean Platelet Vol. 11.4 fl (6.2-12.0); Monocyte# 0.84 X10^3/uL; Monocyte% 6.4 % (0-10); NRBC Flagged by Analyzer 0 % (0-5); Neutrophil % 75.2 % (47-70); Platelet Count 224 K/mm3 (150-450); RBC Distribution Width CV 16.6 % (11.6-14.6); RBC Distribution Width SD 47.1 fl (35.1-43.9); Red Blood Count 4.22 M/mm3 (4.2-5.4)
[2024-04-21 23:54] LABS: Syphilis Antibodies Non-reactive
[2024-04-22] VITALS (84 sets, daily range): BP systolic 100–138; BP diastolic 58–79; PULSE 58–106; RESP 16–18; TEMP 36.3–37.2; O2SAT 85–100
[2024-04-22] MEDS: miSOPROStol 25 MCG TABLET VAGINAL (00:15)
[2024-04-22] MEDS: Lactated Ringers 1,000 ML 999 ML IV (02:11)
[2024-04-22] MEDS: fentaNYL-bupivacaine (epidural) 100 ML BAG EPIDURAL ×3 (03:06→14:44)
[2024-04-22] MEDS: Lactated Ringers 1,000 ML 200 ML IV ×3 (07:43→19:35)
[2024-04-22] MEDS: LACTATED RINGERS 500 ML 999 ML IV ×2 (07:45→17:09)
--- NOTE | 2024-04-22 07:51 | PCM.PN.BLA ---
Progress Note comfortable with epidural current tracing: FHT: 145 Moderate variability reactive occasional late and variable decelerations category II tracing-overall reassuring [place]: 1.5-4 minute Contractions Membranes: AROM at 0735 and internal monitors placed SVE:4/70/-2 A/P: Continue with position changes Start pitocin per protocol if no cervical change Epidural per anesthesia GBS neg Anticipate Dr Quevedo aware of above assessment and agrees with plan of care Assessment & Plan Assessment/Plan (1) Encounter for induction of labor: (2) Uterine size-date discrepancy, third trimester: (3) Anemia affecting : (4) Abdominal pain during in third trimester: (5) Current smoker: (6) Supervision of high risk in first trimester: (7) : QUALIFIERS: Weeks of gestation: 39 weeks Qualified Code(s): Z3A.39 - 39 weeks gestation of Multi Select Codes Urinary/Genital Urinary/Genital CPT Codes: No Charge
--- NOTE | 2024-04-22 12:22 | PCM.PN.BLA ---
Progress Note comfortable with epidural current tracing: FHT: 130 Moderate variability reactive occasional late decelerations category II tracing overall very reassuring [place]: 3-4 minute Contractions Membranes:remains clear SVE:/- reviewed tracing abnormalities since last note: collaboration with Dr Isaacs at this time for Cat II FHT tracing. A/P: Continue with position changes Start/Titrate pitocin per protocol Epidural per anesthesia GBS neg Anticipate Dr Quevedo aware of above assessment and agrees with plan of care Assessment & Plan Assessment/Plan (1) Encounter for induction of labor: (2) Uterine size-date discrepancy, third trimester: (3) Anemia affecting : (4) Abdominal pain during in third trimester: (5) Current smoker: (6) Supervision of high risk in first trimester: (7) : QUALIFIERS: Weeks of gestation: 39 weeks Qualified Code(s): Z3A.39 - 39 weeks gestation of Multi Select Codes Urinary/Genital Urinary/Genital CPT Codes: No Charge
[2024-04-22] MEDS: Oxytocin 15 Units/NS 250ml 15 UNITS/250 ML IV.SOLN 2 UNITS IV (14:17)
[2024-04-22] MEDS: Ondansetron 4 MG/2 ML Vial IV (20:03)
[2024-04-22] MEDS: Amnioinfusion- 0.9% NS 1,000 ML IV.SOLN. 1000 ML INTRA-UTER (20:05)
--- NOTE | 2024-04-22 20:52 | EX.PCM.OBRPT ---
Assessment & Plan (1) Encounter for induction of labor: (2) Uterine size-date discrepancy, third trimester: COMMENT: tata 10 on 04/16. growth US ordered TATA 12 and growth at 40% (3) Anemia affecting : COMMENT: PO iron started (4) Abdominal pain during in third trimester: COMMENT: reassuring labs. sp zofran, IVF and pepcid with decreasing symptoms. (5) Current smoker: COMMENT: Discussed the importance of quitting especially while (6) Supervision of high risk in first trimester: COMMENT: PRR , rolanda 04/21/24 boy, Boyfriend: Kentrell (7) : QUALIFIERS: Weeks of gestation: 39 weeks Qualified Code(s): Z3A.39 - 39 weeks gestation of COMMENT: GBS neg, Limited PNC, nl anatomy, NIPT low risk, silent carrier for Alpha-Thalassemia recommend screening of Kentrell Maternal Data Information ROLANDA Calculator Estimated Delivery Date Method Current WG Current Estimate 04/21/24 Ultrasound #1 40w 1d Other Estimates 05/09/24 LMP (Certain) 37w 4d Final ROLANDA: 04/21/24 Final ROLANDA Source: US <20 weeks Vaginal Delivery Maternal Presentation Maternal Presentation: Medically Indicated Induction Maternal Presentation: induction of labor for late decelerations Type of Induction: Pitocin, Mota Bulb, Amniotomy and Cytotec Operative Information Date of Procedure: 04/22/24 Pre-Operative Diagnosis: 18 y/o @ 40 weeks 1 days, heart rate decelerations Post-Operative Diagnosis: 18 y/o @ 40 weeks 1 days, heart rate decelerations Surgery / Procedure Performed: Vacuum Assisted Vaginal Delivery Type of Anesthesia: Epidural Anesthesiologist: Juan Pablo Weir Drain: Mota to straight drain Estimated Blood Loss: 200cc Time of Delivery: 20:37 Findings Description of Procedure: Details of delivery: This is a 18 year old woman who was admitted to labor and delivery for decelerations at 40 weeks 1 days. The decision was made to perform a vacuum extraction due to persistent deep variable decelerations despite amnioinfusion, position change and scalp stimulation. The risk benefits and alternatives of the procedure were discussed with the patient and verbal consent was obtained. The was noted to be at a +2 station, the cervix was completely dilated. The infant's head was noted to be in the right occiput anterior presentation. The vacuum was placed in the correct placement in front of the posterior fontanelle. This was confirmed digitally. With the patient's next contraction, the vacuum was inflated and a gentle downward pressure was used to assist with bringing the baby's head to a +3 station. With 1 pull and 0 pop offs. The head was delivered atraumatically. a tight nuchal cord was noted. The anterior shoulder followed by the posterior shoulder were delivered without difficulty and the cord was slipped around the shoulders at delivery. The was handed off to the patient's chest. The infant was found to be vigorous and crying and moving of all 4 extremities. The mouth and nares were bulb suctioned. After 60 second delay the cord was clamped and cut and the infant was handed off to the awaiting nurses for routine assessment. The placenta was delivered with gentle traction and uterine massage. Inspection of the vagina cervix and perineum was performed. There were no lacerations to the vagina or to the cervix. The peritoneum was found to be intact. The patient tolerated the procedure well sponge lap and needle counts were correct x2 and she is now recovering in stable condition. Presentation: Vertex Amniotic Membrane Rupture Type: Spontaneous Amniotic Fluid Description: Clear Placental Delivery Description: Spontaneous Placenta Disposition: [facility] Cord Vessel Description: 3 Vessels Cord Entanglement: Around neck x 1, tight A Gender: Male (1 minute): 8 (5 minute): 9 Delayed Cord Clamping: Yes Post Vaginal Delivery Medications Given After Delivery: IV Pitocin Episiotomy Description: None Laceration: None Complication Complications: None Multi Select Codes Urinary/Genital Urinary/Genital CPT Codes: 89802 Vaginal Delivery+ PP Care(RUBEN) and Other Procedure See Report
--- NOTE | 2024-04-22 21:02 | DCINST_ITS ---
Discharge Instructions Diet Discharge Diet: No restrictions Activity Discharge Activity: Return to Normal Activity, May Not Drive (while taking narcotic pain medications.) and May Shower May resume sexual activity in: 4-6 weeks Dressing / Incision Call your doctor if your incision/area has: Continuous Slow Oozing, Sudden Increased Bleeding, Increased Pain/ Swelling, Increased Redness and Foul Smelling Discharge Follow Up Care Please Follow Up With: Precious Isaacs, When: Call [phone] to make an appointment with your doctor in 6 weeks. If you had elevated blood pressure or 4th degree laceration, you will need to be seen in 2 weeks. Test Results: Test results from this visit will be discussed in further detail at your follow- up appointment, if applicable. Discharge Plan Admission Admit Date/Time: 04/21/24 22:14 Attending Provider: Precious Isaacs Primary Care Provider: Care Physician,Rama Primary Discharge Orders/Prescriptions Prescriptions: New ibuprofen 800 mg tablet 800 mg PO Q8H PRN (Reason: pain) Qty: 30 0RF No Action ferrous sulfate [Feosol] 325 mg (65 mg iron) tablet 325 mg PO BID Qty: 60 12RF PNV #[id number] acid-dha 35 mg iron-5 mg iron-1 mg capsule 1 cap PO QHS Qty: 30 12RF Referrals / Follow Up: Care Physician,No Primary [Primary Care Provider] - Disposition Disposition (needs filled in before D/C Order can be placed): Home, Self Care
[2024-04-22] MEDS: Oxytocin 15 Units/NS 250ml 15 UNITS/250 ML IV.SOLN 83 UNITS IV (21:12)
[2024-04-23] VITALS (13 sets, daily range): BP systolic 119–135; BP diastolic 58–84; PULSE 52–74; RESP 15–20; TEMP 36.2–36.6; O2SAT 98
[2024-04-23] MEDS: 0.9% Saline Lock 10 ML Syringe IV (00:20)
--- NOTE | 2024-04-23 07:20 | PN.OBGYN_ITS ---
Subjective Subjective Patient doing well without complaints. Tolerating PO. Ambulating and voiding without difficulty. Feeding well. Denies chest pain, shortness of breath, calf pain/swelling, fevers, chills, lightheadedness. Objective Data Objective Data Vital Signs: Vital Signs Temp Pulse Resp BP Pulse Ox O2 Del Method 97.9 F 67 16 135/80 H 98 Room Air 04/23/24 04:41 04/23/24 04:41 04/23/24 04:41 04/23/24 04:41 04/23/24 04:41 04/23/24 04:41 Oxygen Delivery Method Room Air Weight: 167 lb 5.294 oz Body Mass Index (BMI) 27.0 Intake & Output: Intake and Output for Last 24 Hours 04/21/24 04/22/24 04/23/24 23:59 23:59 23:59 Intake Total 5456.67 / 5456.67 250 / 250 Output Total 1550 / 1550 850 / 850 Balance 3906.67 / 3906.67 -600 / -600 Lab / Micro Data 04/21/24 22:45 ROS Constitutional Constitutional: Denies chills, fatigue, fever(s), poor appetite or weakness Eyes Eyes: Denies blurry vision, change in vision, seeing flashes or spots in vision ENT HEENT: Denies dizziness, headache(s), loss taste/smell or sore throat Cardiovascular Cardiovascular: Denies chest pain, dizziness, dyspnea, irregular heart rhythm, palpitations or rapid heart rate Respiratory/Chest Respiratory/Chest: Denies chest tightness, cough, dyspnea or breast pain Gastrointestinal Gastrointestinal: Denies abdominal pain, constipation or vomiting Genitourinary Genitourinary: Denies dysuria or flank pain Musculoskeletal Musculoskeletal: Denies difficulty walking, joint pain, limited range of motion or numbness Neurologic Neurologic: Denies abnormal movements, abnormal speech, dizziness, numbness, seizure-like activity or syncope Psychiatric Psychiatric: Denies anxiety, behavioral changes, change in appetite, confusion, depression or suicidal thoughts Physical Exam Const alert, oriented x3 and no apparent distress General Appearance: cooperative and comfortable Resp normal respiratory effort Cardio regular rate GI normal to inspection, nondistended, normoactive bowel sounds GI Narrative: uterus is firm below umbilicus Palpation: soft Back/Spine no CVA tenderness and thoraco-lumbar ROM normal Extremity normal to inspection, no clubbing, cyanosis or edema, no calf tenderness and no pedal edema Psych mental status grossly normal, thought process normal, cooperative, affect normal, speech normal, activity/motor behavior normal, denies homicidal ideation and denies suicidal ideation Assessment & Plan (1) Encounter for induction of labor: (2) Uterine size-date discrepancy, third trimester: COMMENT: tata 10 on 04/16. growth US ordered TATA 12 and growth at 40% (3) Anemia affecting : COMMENT: PO iron started (4) Abdominal pain during in third trimester: COMMENT: reassuring labs. sp zofran, IVF and pepcid with decreasing symptoms. (5) Current smoker: COMMENT: Discussed the importance of quitting especially while (6) Supervision of high risk in first trimester: COMMENT: PRR , alexandre 04/21/24 boy, Boyfriend: Kenterll (7) : QUALIFIERS: Weeks of gestation: 39 weeks Qualified Code(s): Z 3A.39 - 39 weeks gestation of COMMENT: GBS neg, Limited PNC, nl anatomy, NIPT low risk, silent carrier for Alpha-Thalassemia recommend screening of [place] (8) Status post vacuum-assisted vaginal delivery: PLAN: Plan s/p PPD # 1 1. routine post delivery care 2. breast feeding- support given 3. rh positive 4. rubella immune
--- NOTE | 2024-04-23 09:32 | NURSING ---
pt very flat affect, seems uninterested in baby. pt hasn't tried to latch baby for 5hrs. This rn assists pt in latching and calls to bedside. This RN is concerned for neglect. Father in and out of the rm and seems only concerned about bathing the infant. this rn educates the couple on the importance of feeding and what we needs to be prioritized.
[2024-04-23] MEDS: Acetaminophen 500 MG Tablet 1000 MG PO (10:05)
--- NOTE | 2024-04-23 14:45 | CASEMGMT ---
Social Work Assessment Labor and Delivery Unit Patient Address:[address] [place] [id number] Phone number: [phone] Date of Referral: Time of Referral:? 829 Referred By: Dr. Cardenas Date of Intervention: ??04/23/24 Time of Intervention:? 1400 Reason for Referral:?anxiety Sw completed chart review and acknowledges social work consult due to maternal history of anxiety. Sw is also familiar with patient from a former labor and delivery admission when she was 31 weeks . Concerns at that time were due to MOB lacking resources and had only attended one appointment. Sw presented to bedside on this date accompanied by CAREER DEVELOPMENT FACILITATOR Precious Mosqueda. Sw reintroduced self to mother of baby (MOB- Kierra) and father of baby (FOB- Kentrell). Also present was paternal grandma and step grandpa. Sw asked if okay to complete assessment with visitors present, and MOB stated yes. Visitors present for majority of assessment, until sw asked them to leave so that MOB could complete Milnor Depression Scale. History obtained from: medical records, MOB and FOB, paternal grandma also contributed to some portions of assessment. Household composition: FOB states that he and MOB are currently residing with his mom and step dad, along with some of his siblings. [place] infant is to also reside at this residence when ready for discharge. No housing issues or concerns reported. Patient's parent/guardian status:? MEG states that she and BEATA have known each other since they were 13, but started dating each other a couple of years ago. They are not and have been together for 1 year. This is first baby for both parents. ? Medical History: ?MEG is 18 year old female who is 1, para 0- now 1 following labor and delivery of . MEG had big gap in care, from 12- 33 weeks gestation. During that time MOB thought that she did not have medical insurance. This sw called JFS with MEG to confirm that she does have medical coverage back when she was only 31 weeks . MEG presented to hospital and delivered baby via vaginal delivery at 40 weeks gestation on 04/22/24. Baby boy, named Kentrell Núñez, was born weighing 6lb 4oz with apgars of 8 and 9 at one and five minutes of life, respectfully. Educational Status:?Both parents graduated from high school. Financial Status: BEATA states that he is now employed working on [employer] and power [employer]. MOB states that she remains unemployed, but now that baby has been born she has intentions of going back to work either time analysis clerk or parts identifier. Parents state that when they are both working they will have access to childcare through one of BEATA's friends. Infant Supplies:?? MOB and grandma report to having all necessary baby supplies including: car seat, safe sleep space, clothes, diapers and wipes. Childcare/Caregiver(s):? MOB states that she will be the primary caregiver to baby along with BEATA when he is not working. Transportation:?? BEATA has his permit and states that he is working on obtaining his drivers license. MEG does not have her permit. Neither parent has a vehicle. MOB states that she gets to doctors appointments by assistance from BEATA's step dad. Paternal grandma also stated that there are lots of transportation resources available to patient through Provide a ride and community resources. Programs/Agencies Involved: ???MEG states that she is connected to SNAP and has insurance through [facility] MOB reports that she is receptive to getting connected to WIC and [employer] [facility]. Sw offered to make referral to [employer]- MOB appreciative. Children Services/Legal Issues:??? No history of children services involvement. Sw to make referral to [facility] due to lack of resources and transportation issues. - Sw called [facility] and spoke to hotline screenerLyric. Behavioral Health Issues: ??Mental Health History:?Both parents disclose that they have been diagnosed with anxiety, and BEATA has ADHD. Neither parent is prescribed medication to help manage their mental health symptoms. ?? Substance Use History:??MOB denies substance use prior to and during . Family History:???Parents deny family history of substance use/ addiction and significant mental health diagnoses. ?? Drug Screens: ??MEG had a urine toxicology test done at 31 weeks (02/24/24) and it was negative for all substances. Family/Social Stressors:? Parents deny any issues, concerns or stressors at this time. BEATA did mention financial barriers at one point in time when discussing obtaining his drivers license. Support Systems: MOB states that BEATA, paternal grandma and her mom are her biggest supports at this time. Depression/Shaken Baby/Safe Sleeping:? Sw educated parents on signs and symptoms of mood and anxiety disorders. Sw encouraged parents to reach out for support and linkage to mental health services and supports if they feel as though they are struggling during this period. Sw informed FOB that dads are also susceptible to experiencing symptoms. FOB expressed understanding. MOB completed Milnor Depression Scale and her score was a 3. Sw provided education and support. Sw educated parents on shaken baby prevention and ABCs of safe sleep. Parents express understanding. ASSESSMENT:? MOB and baby are admitted following labor and delivery. MOB is known to this sw'er from prior hospitalization in Labor and Delivery at 31 weeks gestation. At that time MOB had only attended one appointment at 12 weeks. MOB reported she did not think that she had medical coverage so she did not go to appointments. At that time Sw called JFS and confirmed with MOB that she does in fact have medical coverage. MOB went to one other appointment at 33 weeks gestation. FOB was more talkative throughout completion of psychosocial assessment. MOB made eye contact and answered questions but did not elaborate on answers. MOB states that she has transportation, however continued to not attend appointments because she did not have service to make the appointments. Sw stressed the importance of baby attending his aluminum pool installer appointments. PLAN:? Referral made to Children Services for lack of resources and family in need. If Children Services were to screen the referral in they will follow up with parents at home. MOB and baby to be discharged when medically ready. ?No other services requested or indicated. Dylan Mcclain, GREEN TIRE INSPECTOR, CAREER DEVELOPMENT FACILITATOR
[2024-04-24 01:49] VITALS: BP 127/66; PULSE 57; PULSE 64; RESP 16; TEMP 36; O2SAT 98; O2SAT 99
[2024-04-24 07:56] VITALS: BP 120/69; PULSE 52; O2SAT 98
[2024-04-24 07:59] VITALS: BP 120/64; PULSE 58; RESP 17; TEMP 36.9; O2SAT 99
--- NOTE | 2024-04-24 11:27 | PCM.PN.OB ---
Subjective Subjective Patient doing well without complaints. Tolerating PO. Ambulating and voiding without difficulty. Feeding well. Denies chest pain, shortness of breath, calf pain/swelling, fevers, chills, lightheadedness. Objective Data Objective Data Vital Signs: Vital Signs Temp Pulse Resp BP Pulse Ox O2 Del Method 98.4 F 58 L 17 120/64 99 Room Air 04/24/24 07:59 04/24/24 07:59 04/24/24 07:59 04/24/24 07:59 04/24/24 07:59 04/24/24 07:59 Oxygen Delivery Method Room Air Weight: 167 lb 5.294 oz Body Mass Index (BMI) 27.0 Intake & Output: Intake and Output for Last 24 Hours 04/22/24 04/23/24 04/24/24 23:59 23:59 23:59 Intake Total 5456.67 / 5456.67 250 / 250 Output Total 1550 / 1550 850 / 850 Balance 3906.67 / 3906.67 -600 / -600 Lab / Micro Data 04/21/24 22:45 Physical Exam Const alert, oriented x3 and no apparent distress General Appearance: cooperative and comfortable Resp normal respiratory effort Cardio regular rate GI normal to inspection, nondistended, normoactive bowel sounds GI Narrative: uterus is firm below umbilicus Palpation: soft Back/Spine no CVA tenderness and thoraco-lumbar ROM normal Extremity normal to inspection, no clubbing, cyanosis or edema, no calf tenderness and no pedal edema Psych mental status grossly normal, thought process normal, cooperative, affect normal, speech normal, activity/motor behavior normal, denies homicidal ideation and denies suicidal ideation Assessment & Plan (1) Vacuum-assisted vaginal delivery: COMMENT: JORDAN vacuum PLAN: s/p PPD # 2 1. routine post delivery care 2. breast feeding- support given 3. rh positive 4. rubella immune 5. plan on d/c home today
--- NOTE | 2024-04-24 11:30 | PCM.DC.SUM ---
Providers Date of Admission: 04/21/24 Primary Care Physician: No Primary Care Phys Reason For Visit: VAGINAL Diagnosis Discharge Diagnosis (1) Vacuum-assisted vaginal delivery: Status: Acute Code(s): Z37.9 - Outcome of delivery, unspecified Plan: s/p PPD # 2 1. routine post delivery care 2. breast feeding- support given 3. rh positive 4. rubella immune 5. plan on d/c home today Medications at Discharge Home Medications ferrous sulfate 325 mg (65 mg iron) tablet (Feosol) 325 mg PO BID #60 tabs 02/25/24 vitamin #56-iron 35 mg and 5 mg-folic acid 1 mg-dha capsule 1 cap PO QHS #30 caps 02/25/24 ibuprofen 800 mg tablet 800 mg PO Q8H PRN pain #30 tabs 04/22/24 Hospital Course Operations None Procedures None Summary of Care Provided Hospital Course: with limited care. status post VAVD by JV. Physical Exam Const alert, oriented x3 and no apparent distress General Appearance: cooperative and comfortable Resp normal respiratory effort Cardio regular rate GI normal to inspection, nondistended, normoactive bowel sounds GI Narrative: uterus is firm below umbilicus Palpation: soft Back/Spine no CVA tenderness and thoraco-lumbar ROM normal Extremity normal to inspection, no clubbing, cyanosis or edema, no calf tenderness and no pedal edema Psych mental status grossly normal, thought process normal, cooperative, affect normal, speech normal, activity/motor behavior normal, denies homicidal ideation and denies suicidal ideation Weight / BMI Weight Weight: 167 lb 5.294 oz Body Mass Index (BMI) 27.0 ABG / Lab / Microbiology Data 04/21/24 22:45 D/C Instructions Discharge Diet: No restrictions May resume sexual activity in: 4-6 weeks Call your doctor if your incision/area has: Continuous Slow Oozing, Sudden Increased Bleeding, Increased Pain/ Swelling, Increased Redness and Foul Smelling Discharge Please Follow Up With: Precious Isaacs DO When: Call [phone] to make an appointment with your doctor in 6 weeks. If you had elevated blood pressure or 4th degree laceration, you will need to be seen in 2 weeks. Meaningful Use Info Meaningful Use Meaningful Use Diagnoses (Choose all that apply): None applicable Ischemic Stroke Statin Dosing Therapy Reference: STATIN DOSE THERAPY REFERENCE: * Patients > 75 years receive moderate or high dose statin therapy. * Patients 75 years or YOUNGER should receive HIGH intensity statin dose unless contraindicated. You will be required to document reason for non-treatment if statin daily dose does not meet guidelines. HIGH DOSE STATIN THERAPY DAILY Atorvastatin > than or = to 40 mg Rosuvastatin > than or = to 20 mg Amlodipine + Atorvastatin > than or = to 2.5/40 mg Ezetimibe + Simvastatin 10/80 mg Simvastatin 80mg Discharge Plan Admission Admit Date/Time: 04/21/24 22:14 Attending Provider: Precious Isaacs Primary Care Provider: Care PhysicianRama Primary Discharge Orders/Prescriptions Prescriptions: New ibuprofen 800 mg tablet 800 mg PO Q8H PRN (Reason: pain) Qty: 30 0RF No Action ferrous sulfate [Feosol] 325 mg (65 mg iron) tablet 325 mg PO BID Qty: 60 12RF PNV #[id number] acid-dha 35 mg iron-5 mg iron-1 mg capsule 1 cap PO QHS Qty: 30 12RF Referrals / Follow Up: Care Physician,No Primary [Primary Care Provider] - Disposition Disposition (needs filled in before D/C Order can be placed): Home, Self Care
[2024-04-24 13:45] VITALS: BP 115/80; PULSE 60
[2024-04-24 13:46] VITALS: BP 115/80; PULSE 79; RESP 16; TEMP 36.4; O2SAT 99
== END 2024-04-24 14:25 | disposition home or self-care (01) | DRG 560 ==
LOC: WPOUT 22:42 → WP 22:42
PROVIDERS: Admitting Provider Obstetrics & Gynecology; Referring Provider Obstetrics & Gynecology; Visit Provider Obstetrics & Gynecology
DX: O76 Abnormality in fetal heart rate and rhythm complicating labor and delivery (principal); Z37.0 Single live birth; D64.9 Anemia, unspecified; F17.210 Nicotine dependence, cigarettes, uncomplicated; O26.843 Uterine size-date discrepancy, third trimester; Z3A.40 40 weeks gestation of pregnancy; O99.334 Smoking (tobacco) complicating childbirth; O69.1XX0 Labor and delivery complicated by cord around neck, with compression, not applicable or unspecified; O48.0 Post-term pregnancy; O36.8130 Decreased fetal movements, third trimester, not applicable or unspecified; O99.02 Anemia complicating childbirth
CPT/HCPCS: 59025; 59050; 85025; 86780; 86850; 86900; 86901; 99221; J7030; J7120; A4216; G0378; J2405